=== PATIENT | female | born 1975 | race Caucasian/White ===

== ENCOUNTER 2024-10-30 09:24 | Emergency (ER) | payer OTHER, SELFPAY ==
[2024-10-30 09:33] VITALS: BP 136/84
--- NOTE | 2024-10-30 10:48 | ED.GENMED ---
History of Present Illness
General
Chief Complaint: Heart Rate Problem
Time Seen by Provider: 10/30/24 09:57
History of Present Illness
History of Present Illness:
49-year-old female with a history of breast cancer status post double mastectomy and chemotherapy presenting for palpitations. Patient reports the past 2 days. Notes that the palpitations have been intermittent, and reports history of PVCs in the
past. Does also note history of anxiety, has had a lot of social stress. She takes Ativan intermittently as needed for anxiety. Denies any associated chest pain or difficulty breathing. Reports she has seen a telecommunication engineer in the past,
unremarkable workup, negative Holter monitor. Denies abdominal pain or GI symptoms. Denies additional acute medical complaints
Phy Exam
Physical Exam
Physical Exam:
General: Well-appearing, no clinical signs of dehydration, nontoxic and in no acute distress
HEENT: protecting airway
Neck: appears supple
CV: Normal heart rate, regular rhythm
Resp: No accessory muscle use, no increased work of breathing, lungs clear to auscultation bilaterally
Abd: Soft and non-distended, no tenderness to palpation
Extremities: No deformities, no swelling, no erythema
Neuro: alert, no focal neurologic deficit
: deferred
Rectal: deferred
Psych: Normal affect
Skin: Intact
Course
Orders/Labs/Results
Orders:
Orders
10/30/24 09:25
ECG [Electrocardiogram (*1)] Urgent
Reason for Study: Palpitations
EKG- Treatment ONCE
10/30/24 10:53
Complete Blood Count/With Diff Urgent
Comprehensive Metabolic Panel Urgent
Troponin I Urgent
Abnormal Lab Results
10/30/24
10:53
MCHC 32.8 L g/dL
(33.0-37.0)
Absolute Lymphs (auto) 1.0 L 10^3/uL
(1.2-3.4)
Neutrophils % 76.8 H %
(42.2-75.2)
Lymphocytes % 14.8 L %
(20.5-51.1)
Glucose 105 H mg/dl
(70-99)
10/30/24 10:53
10/30/24 10:53
Vital Signs
Initial and Last Documented VS:
Initial Vital Signs
Temp Pulse Resp BP Pulse Ox
98.5 F 86 16 136/84 99
10/30/24 09:33 10/30/24 09:33 10/30/24 09:33 10/30/24 09:33 10/30/24 09:33
Last Documented Vital Signs
Temp Pulse Resp BP Pulse Ox
98.5 F 74 11 140/84 98
10/30/24 09:33 10/30/24 11:15 10/30/24 11:15 10/30/24 11:02 10/30/24 11:15
MDM/Problems Addressed
MDM/Problems Addressed:
49-year-old female with history of breast cancer and anxiety presenting for palpitations. Vital signs on arrival are normal.
On exam patient is well-appearing, resting comfortably. EKG obtained on arrival, sinus without arrhythmia. Patient reports PVCs in the past, and symptoms appear consistent with PVCs. Do suspect anxiety component as well. Lower suspicion for ACS.
Lower special for PE without any respiratory symptoms, no hypoxia, no tachycardia. Will screen with laboratory analysis and continue to monitor on the quality assurance monitor chassis
12:00 -patient's labs are unremarkable. Heart rate remains in normal, sinus, no arrhythmias. At this time feel stable for discharge with interval follow-up with cardiology. Patient reports that she she was given a telecommunication engineer by her oncologist.
At this time feel stable for discharge with interval follow-up. Return precautions discussed and patient verbalized understanding
*EKG
Interpreted by ED Provider?: Yes
EKG Intrepretation Date: 10/30/24
EKG Intrepretation Time: 10:56
Interpretation: normal
Comparison EKG: no comparison EKG present
Heart Rate: 90
Rate: normal
Rhythm: sinus
[place]: normal axis
Interval: normal interval
QRS Pattern: normal QRS
Ischemia: no ischemia
*Critical Care Note
Total Time (30-74mins, 75-104mins- exclusive of procedures): Not Applicable
ED Attending Note
-
Portions of this chart may have been created with voice recognition software.� Occasional wrong word or��sound alike� substitutions may have occurred due to the inherent limitations of voice recognition software.
Discharge Plan
Departure
Referrals:
Laura Kraus, [Family Provider] -
Interventions
Interventions:
*Risk Screen - Suicide Last Done: 10/30/24 09:33
*General Assessment Last Done: 10/30/24 09:33
*Neglect/Abuse Screening Last Done: 10/30/24 09:33
ED- Fall Risk Assessment Last Done: 10/30/24 09:54
*ED COVID-19 Vaccine History Last Done: 10/30/24 09:53
ED- Cardiac Assessment Last Done: 10/30/24 10:53
ED- Pulmonary Assessment Last Done: 10/30/24 10:53
Discharge Date and Time
Print Language: [id number]
[2024-10-30 11:02] VITALS: BP 140/84
[2024-10-30 11:25] LABS: % Basophils 0.6 % (0-2); % Eosinophils 0.1 % (0-6); % Immature Granulocytes 0.3 % (0-0.5); % Lymphocytes 14.8 % (20.5-51.1); % Monocytes 7.4 % (1.7-9.3); % Neutrophils 76.8 % (42.2-75.2); Absolute Monocytes 0.5 10^3/uL (0.1-0.6); Absolute Neutrophils 5.2 10^3/uL (1.4-6.5); Hematocrit 42.1 % (37.0-47.0); Hemoglobin 13.8 g/dL (12.0-16.0); Mean Corp Hgb Conc. 32.8 g/dL (33.0-37.0); Mean Corpuscular Hgb 28.5 pg (27.0-31.0); Mean Corpuscular Volume 86.8 fL (81.0-99.0); Mean Platelet Volume 9.1 fL (7.4-10.4); Nucleated Red Blood Cells % 0 %; Platelet Count 319 10^3/uL (130-400); Red Blood Cell Count 4.85 10^6/uL (4.20-5.40); Red Cell Dist. Width 13.2 % (11.5-14.5); White Blood Cell Count 6.8 10^3/uL (4.8-10.8)
[2024-10-30 11:30] LABS: ALT (SGPT) 22 U/L (0-35); AST (SGOT) 22 U/L (14-36); Albumin 4.4 g/dl (3.5-5.0); Alkaline Phosphatase 113 U/L (38-126); Blood Urea Nitrogen 14 mg/dl (7-17); Carbon Dioxide 27 mmol/L (22-30); Chloride 102 mmol/L (98-107); Glucose 105 mg/dl (70-99); Potassium 4.6 mmol/L (3.5-5.1); Sodium 138 mmol/L (135-145); Total Bilirubin 0.4 mg/dl (0.2-1.3); eGFR > 60.00
[2024-10-30 11:40] LABS: Troponin I < 0.012 ng/ml
== END 2024-10-30 12:20 | disposition home or self-care (01) ==
LOC: EMR 09:24
PROVIDERS: EMERGENCY PHYSICIAN Student in an Organized Health Care Education/Training Program; FAMILY PHYSICIAN Internal Medicine
DX: R00.2 Palpitations (principal); F41.9 Anxiety disorder, unspecified; Z85.3 Personal history of malignant neoplasm of breast
CPT/HCPCS: 99284; 80053; 84484; 85025; 93005